=== PATIENT | female | born 1940 | race Asian ===

== ENCOUNTER 2021-04-18 15:58 | Emergency (ER) | payer MEDICARE ==
[~2021-04-18] VITALS: Ht 154.9 cm; Wt 47.7 kg
[2021-04-18 16:10] VITALS: BP 135/81
[2021-04-18] MEDS ORDERED: VITA-328 PO (16:13)
[2021-04-18] MEDS ORDERED: CARB-98 PO ×2 (16:13)
[2021-04-18] MEDS ORDERED: LEVO50 PO (16:13)
[2021-04-18] MEDS ORDERED: CHOL400T56 PO (16:13)
[2021-04-18] MEDS ORDERED: CALC-1038 PO (16:13)
[2021-04-18] MEDS ORDERED: METF-960 PO (16:13)
[2021-04-18] MEDS ORDERED: DEXAMETHASONE 4 MG TABLET PO ONE (17:30)
[2021-04-18] MEDS ORDERED: FAMOTIDINE 20 MG TABLET PO ONE (17:30)
== END 2021-04-18 17:48 | disposition home or self-care (01) ==
LOC: EMS 16:04
DX: L50.9 Urticaria, unspecified (principal); E11.9 Type 2 diabetes mellitus without complications
CPT/HCPCS: 82962; 99283; J8540